=== PATIENT | male | born 1975 | race Caucasian/White ===

== ENCOUNTER 2019-03-17 12:19 | Emergency (ER) | payer BC ==
[~2019-03-17] VITALS: Ht 177.8 cm; Wt 86.2 kg
--- NOTE | 2019-03-17 13:25 | NUR ---
DR RIVERA MADE PATIENT AWARE OF TEST RESULTS WILL BE DC HOME.
--- NOTE | 2019-03-17 13:32 | NUR ---
Patient discharged to home in stable conditon. Written and verbal after care instructions given. Patient verbalizes understanding of instructions.
[2019-03-17 13:33] VITALS: BP 141/85
== END 2019-03-17 13:34 | disposition home or self-care (01) ==
LOC: ER 12:22
DX: M77.9 Enthesopathy, unspecified (principal)
CPT/HCPCS: 73030; A4663